=== PATIENT | male | born 1935 | race Caucasian/White ===

== ENCOUNTER 2017-04-14 08:38 | Emergency (ER) | payer OTHER ==
--- NOTE | ~2017-04-14 | CR172 ---
[facility] A Service of [facility] RADIOLOGY TEXT RESULTS PATIENT: DAYNA VICTOR LOCATION: SED : 35 UNIT #: [id number] AGE: [address]: Mayo Ledesma MD SEX: M ORDER DR: [id number] [place] [address] [id number] MR#: [id number] Acc #: [id number] NAME: DAYNA VICTOR : 1935 SEX: M STUDY DATE/TIME: 04/14/2017 9:14 UNIT: SED ROOM: STUDY DESCRIPTION: CR Knee 3 Views Lt Attending Physician: Mayo Ledesma M.D. Ordering Physician: Mayo Ledesma M.D. MEDICAL IMAGING REPORT This report is preliminary unless electronic signature is present. EXAM Left knee, 3 views HISTORY Pain and swelling since last night, hit by dog. FINDINGS Three views are submitted. The patient has extensive chondrocalcinosis. There is joint space narrowing that is tricompartmental. Multiple calcifications are identified in the suprapatellar bursa and posteriorly in the joint space. No fractures are identified. 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 No fractures identified. Dictated by... Andrew Dailey M.D. THIS IS AN ELECTRONICALLY VERIFIED REPORT Andrew Dailey M.D. at 04/15/2017 9:16 AM ODESSA/dahiana TD: 04/14/2017 14:32 JOB #: [id number] MEDICAL IMAGING REPORT Page 1 of 1
[2017-04-14] MEDS ORDERED: METOPROLOL PO (08:46)
[2017-04-14] MEDS ORDERED: ASPIRIN PO (08:46)
[2017-04-14] MEDS ORDERED: VITAMIN C (08:46)
[2017-04-14] MEDS ORDERED: FERROUS SULFATE PO (08:47)
[2017-04-14] MEDS ORDERED: FUROSEMIDE PO (08:47)
[2017-04-14] MEDS ORDERED: NEXIUM PO (08:47)
[2017-04-14] MEDS ORDERED: ATORVASTATIN PO (08:48)
[2017-04-14] MEDS ORDERED: TAMSULOSIN PO (08:49)
== END 2017-04-14 10:14 | disposition home or self-care (01) ==
LOC: SED 08:38
DX: S80.02XA Contusion of left knee, initial encounter (principal); I11.0 Hypertensive heart disease with heart failure; I50.9 Heart failure, unspecified; W22.8XXA Striking against or struck by other objects, initial encounter; Y92.89 Other specified places as the place of occurrence of the external cause
CPT/HCPCS: 29540; 73562; 99283